=== PATIENT | female | born 1945 | race Two or more races ===

== ENCOUNTER 2017-10-04 05:25 | Day surgery (SDC) | payer OTHER ==
[~2017-10-04 05:25] MED LIST: ARICEPT10 MG PO; ARIMIDEX PO; BENADRYL25 MG PO; CLARITIN10 M1 PO; LEVO-T25 MCG PO; METFORMIN HCL500 MG PO; PERCOCET 5-3251 EACH PO; ZOCOR20 MG PO
[2017-10-04] MEDS ORDERED: CIPRO500 MG PO (09:42)
== END 2017-10-04 13:00 | disposition home or self-care (01) ==
LOC: CIR.AMB 05:25
DX: N95.0 Postmenopausal bleeding (principal)

== ENCOUNTER 2019-03-05 08:52 | Outpatient (CLI) | payer OTHER ==
[~2019-03-05 08:52] MED LIST changes: +CIPRO500 MG PO
== END 2019-03-05 09:06 | disposition home or self-care (01) ==
LOC: RAD 08:52
DX: M54.5 Low back pain (principal); M54.16 Radiculopathy, lumbar region

== ENCOUNTER 2021-05-05 08:00 | Outpatient (CLI) | payer OTHER | END 2021-05-05 08:30 | disposition home or self-care (01) | LOC: PPH VACUNA 08:00 | DX: Z23 Encounter for immunization (principal) ==

== ENCOUNTER 2021-05-26 08:05 | Outpatient (CLI) | payer OTHER | END 2021-05-26 08:15 | disposition home or self-care (01) | LOC: PPH VACUNA 08:05 | PROVIDERS: ATTEND Emergency Medicine Pediatric Emergency Medicine | DX: Z23 Encounter for immunization (principal) ==

== ENCOUNTER 2021-10-11 08:00 | Outpatient (CLI) | payer OTHER | END 2021-10-11 08:30 | disposition home or self-care (01) | LOC: PPH VACUNA 08:00 | PROVIDERS: ATTEND Emergency Medicine Pediatric Emergency Medicine | DX: Z23 Encounter for immunization (principal) ==

== ENCOUNTER 2025-04-14 14:18 | Emergency (ER) | payer OTHER ==
[~2025-04-14] VITALS: Ht 152.4 cm; Wt 76.2 kg
[2025-04-14] MEDS ORDERED: TETRACAINE HCL 20 DR/ML DROPS OP STA (19:51)
== END 2025-04-14 20:50 | disposition home or self-care (01) ==
LOC: ER 14:18
DX: G89.11 Acute pain due to trauma (principal); H57.12 Ocular pain, left eye; I10 Essential (primary) hypertension; E03.8 Other specified hypothyroidism; E11.9 Type 2 diabetes mellitus without complications; Z79.84 Long term (current) use of oral hypoglycemic drugs; Z88.0 Allergy status to penicillin; Z91.018 Allergy to other foods